=== PATIENT | female | born 1985 | race Caucasian/White ===

== ENCOUNTER 2020-07-04 15:00 | Inpatient (IN) | payer MEDICAID ==
[~2020-07-04] VITALS: Ht 157.5 cm; Wt 55.4 kg
[2020-07-04 15:00] VITALS: BP 102/68
--- NOTE | 2020-07-04 16:04 | NUR ---
PAGER ID: [phone] MESSAGE: [facility] [id number] Re: Jacques from [place] is here please have admitting MD call
[2020-07-04] MEDS ORDERED: normal saline 1000ml 1,000 ML IV SCH (16:10)
[2020-07-04] MEDS ORDERED: CADD PCA waste documentation MC PRN (16:10)
[2020-07-04] MEDS ORDERED: naloxone 0.4 mg/ml inj IV PRN (16:10)
[2020-07-04 16:40] LABS: BASOPHILS % (AUTO) 0.5 % (0-1); EOSINOPHILS # (AUTO) 0.2 X10'3 (0-0.9); EOSINOPHILS % (AUTO) 2.6 % (0-6); HEMATOCRIT 39.2 % (35.0-45.0); HEMOGLOBIN 13.3 g/dl (12.0-16.0); LYMPHOCYTES # (AUTO) 1.7 X10'3 (1.1-4.8); LYMPHOCYTES % (AUTO) 22.4 % (21-51); MEAN CORPUSCULAR HEMOGLOBIN 33.6 PG (27.0-31.0); MEAN CORPUSCULAR HGB CONC 33.9 g/dL (33.0-36.5); MEAN CORPUSCULAR VOLUME 99.2 FL (78-98); MEAN PLATELET VOLUME 8.8 FL (7.4-10.4); MONOCYTES # (AUTO) 0.5 X10'3 (0-0.9); MONOCYTES % (AUTO) 6.4 % (2-12); NEUTROPHILS # (AUTO) 5.3 X10'3 (1.8-7.7); NEUTROPHILS % (AUTO) 68.1 % (42-75); PLATELET COUNT 205 X10'3 (140-440); RED BLOOD COUNT 3.95 X10'6 (4.20-5.60); RED CELL DISTRIBUTION WIDTH 14.9 % (11.5-14.5); WHITE BLOOD COUNT 7.8 X10'3 (4.5-11.0)
[2020-07-04 16:41] LABS: URINE HCG NEGATIVE (NEG)
[2020-07-04 16:48] LABS: PARTIAL THROMBOPLASTIN TIME 27 SECONDS (22-32)
[2020-07-04 16:50] LABS: ALANINE AMINOTRANSFERASE 50 U/L (12-78); ALBUMIN 3.3 G/DL (3.4-5.0); ALKALINE PHOSPHATASE 97 IU/L (46-116); ANION GAP 7 (8-16); ASPARTATE AMINO TRANSFERASE 40 U/L (10-37); BILIRUBIN,TOTAL 0.3 MG/DL (0.1-1.0); BLOOD UREA NITROGEN 3 MG/DL (7-18); BUN/CREATININE RATIO 4.9 (6.6-38.0); CALCIUM 8.5 MG/DL (8.5-10.1); CHLORIDE 105 MMOL/L (99-107); CREATININE 0.61 MG/DL (0.40-0.90); GLUCOSE 94 MG/DL (70-104); POTASSIUM 4.2 MMOL/L (3.5-5.1); SODIUM 142 MMOL/L (135-145); TOTAL CARBON DIOXIDE 30.5 MMOL/L (24-32); TOTAL PROTEIN 6.6 G/DL (6.4-8.2); eGFR > 90 ML/MIN
[2020-07-04] MEDS: HYDROmorphone/NS 1 mg/ml CADD 50 ML IV SCH ×4 (17:11→23:00)
[2020-07-04] MEDS ORDERED: ESCI20TA25 PO (17:21)
[2020-07-04] MEDS ORDERED: HYDR-3686 PO (17:27)
--- NOTE | 2020-07-04 17:32 | NUR ---
PAGER ID: [phone] MESSAGE: [facility] [id number] Re: Direct admit, Jacques- Dr Osborne can you call please re: admit for Dr Harrison
--- NOTE | 2020-07-04 17:33 | NUR ---
Patient states that she take an anxiety medication but can't remember the name and only takes it sometimes. Per patient she uses [facility] [place]. I called and they did not show anything [facility] and it is in med rec. Dr Osborne aware and will come and see patient before she leaves [facility]
[2020-07-04] MEDS ORDERED: potassium Cl 20 mEq SR tablet PO PRN ×2 (18:05)
[2020-07-04] MEDS ORDERED: HYDROcodone/acetaminophen 10/325mg tab PO PRN (18:05)
[2020-07-04] MEDS ORDERED: magnesium 4gm in 100ml NS 100 ML IV PRN (18:05)
[2020-07-04] MEDS ORDERED: docusate sod 100mg capsule PO PRN (18:05)
[2020-07-04] MEDS ORDERED: ondansetron/PF 4mg/2ml inj IV PRN (18:05)
[2020-07-04] MEDS ORDERED: HYDROcodone/acetaminophen 5mg/325mg tablet PO PRN (18:05)
[2020-07-04] MEDS: normal saline 1000ml 1,000 ML IV SCH (18:05)
[2020-07-04] MEDS ORDERED: potassium Cl 40MEQ/1/2NS 520ml 520 ML IV PRN ×2 (18:05)
[2020-07-04] MEDS ORDERED: acetaminophen 325mg tablet PO PRN ×2 (18:05)
[2020-07-04] MEDS ORDERED: magnesium 2GM in 50ml NS 50 ML IV PRN (18:05)
[2020-07-04] MEDS ORDERED: magnesium Cl slow-release 64mg tablet PO PRN (18:05)
[2020-07-04] MEDS ORDERED: morphine 2 MG/ML inj. syringe IV PRN ×2 (18:05)
--- NOTE | 2020-07-04 18:05 | NUR ---
Received a call from Lab that patients Covid test is negative
--- NOTE | 2020-07-04 18:30 | NUR ---
I have received report from Bozena CARRERA and had the opportunity to ask questions and assume patient care.
--- NOTE | 2020-07-04 18:50 | NUR ---
Problems reprioritized. Patient report given, questions answered & plan of care reviewed with Amanda CARRERA.
[2020-07-04] MEDS ORDERED: hydrOXYzine 25 MG tablet PO ONE (18:55)
[2020-07-04 20:00] VITALS: BP 126/66
[2020-07-04] MEDS: heparin, porcine 5000 units/ml vial SQ SCH (20:00)
[2020-07-04] MEDS: K and/or MAG REPLACEMENT MC SCH (20:00)
[2020-07-04] MEDS ORDERED: temazepam 15mg capsule PO PRN (21:00)
--- NOTE | 2020-07-04 22:53 | NUR ---
I have received report from Bozena CARRERA and had the opportunity to ask questions and assume patient care.
[2020-07-05] VITALS (16 sets, daily range): BP systolic 95–123; BP diastolic 51–82
[2020-07-05] MEDS: piperacillin/tazo 3.375gm/50ml 50 ML IV SCH ×3 (00:15→17:10)
[2020-07-05] MEDS: HYDROmorphone/NS 1 mg/ml CADD 50 ML IV SCH ×10 (01:00→23:00)
[2020-07-05] MEDS: normal saline 1000ml 1,000 ML IV SCH ×2 (03:47→17:10)
--- NOTE | 2020-07-05 06:47 | NUR ---
Problems reprioritized. Patient report given, questions answered & plan of care reviewed with Elsie CARRERA.
[2020-07-05 07:12] LABS: BASOPHILS % (AUTO) 0.2 % (0-1); EOSINOPHILS # (AUTO) 0.2 X10'3 (0-0.9); EOSINOPHILS % (AUTO) 3.2 % (0-6); HEMOGLOBIN 11.9 g/dl (12.0-16.0); MEAN CORPUSCULAR HEMOGLOBIN 33.2 PG (27.0-31.0); MEAN CORPUSCULAR HGB CONC 33.1 g/dL (33.0-36.5); MEAN CORPUSCULAR VOLUME 100.4 FL (78-98); MEAN PLATELET VOLUME 8.9 FL (7.4-10.4); MONOCYTES # (AUTO) 0.5 X10'3 (0-0.9); MONOCYTES % (AUTO) 8.1 % (2-12); NEUTROPHILS % (AUTO) 52.5 % (42-75); PLATELET COUNT 188 X10'3 (140-440); RED BLOOD COUNT 3.58 X10'6 (4.20-5.60); RED CELL DISTRIBUTION WIDTH 14.9 % (11.5-14.5); WHITE BLOOD COUNT 5.7 X10'3 (4.5-11.0)
--- NOTE | 2020-07-05 07:23 | NUR ---
Patient in room [facility]. I have received report from kevon CARRERA and had the opportunity to ask questions and assume patient care.
[2020-07-05] MEDS: pantoprazole 40mg Tablet.DR PO SCH (07:30)
[2020-07-05 07:40] LABS: ALANINE AMINOTRANSFERASE 43 U/L (12-78); ALBUMIN 2.7 G/DL (3.4-5.0); ALBUMIN/GLOBULIN RATIO 0.9 (1.1-1.5); ALKALINE PHOSPHATASE 79 IU/L (46-116); ANION GAP 6 (8-16); ASPARTATE AMINO TRANSFERASE 37 U/L (10-37); BILIRUBIN,TOTAL 0.2 MG/DL (0.1-1.0); BLOOD UREA NITROGEN 2 MG/DL (7-18); BUN/CREATININE RATIO 3.2 (6.6-38.0); CALCIUM 8.2 MG/DL (8.5-10.1); CHLORIDE 109 MMOL/L (99-107); CHOL/HDL RATIO 3.1 (0.00-4.99); CHOLESTEROL 150 MG/DL (0-200); CREATININE 0.62 MG/DL (0.40-0.90); GLUCOSE 84 MG/DL (70-104); HDL CHOLESTEROL 48 MG/DL (35-60); LDL CHOLESTEROL 93 MG/DL (50-100); SODIUM 143 MMOL/L (135-145); TOTAL CARBON DIOXIDE 28.5 MMOL/L (24-32); TOTAL PROTEIN 5.7 G/DL (6.4-8.2); TRIGLYCERIDES 92 MG/DL (20-135); eGFR > 90 ML/MIN
[2020-07-05] MEDS: heparin, porcine 5000 units/ml vial SQ SCH ×2 (08:00→20:00)
[2020-07-05] MEDS: ESCITALOPRAM OXALATE 5 MG TABLET PO SCH (08:00)
[2020-07-05] MEDS ORDERED: nicotine 14mg patch - 24hr TD SCH ×2 (08:00→21:22)
[2020-07-05] MEDS: K and/or MAG REPLACEMENT MC SCH ×2 (08:00→20:00)
[2020-07-05] MEDS: hydrOXYzine 25 MG tablet PO SCH ×3 (08:00→17:31)
[2020-07-05] MEDS ORDERED: famotidine/PF 10 mg/ml inj IV ONE (08:20)
[2020-07-05] MEDS ORDERED: ringers solution, lacted 1,000 ML IV ONE (08:25)
[2020-07-05] MEDS ORDERED: INDOCYANINE GREEN 25 MG/10 ML VIAL IV ONE (10:00)
[2020-07-05] MEDS ORDERED: pneumococcal 23-VAL P-sac vacc 25 mcg/0.5ml vial IMVAC ONE (10:00)
[2020-07-05] MEDS ORDERED: FLU VACC QS2020-21(6MOS UP)/PF 60 MCG/0.5 ML SYRINGE IMVAC ONE (10:00)
[2020-07-05] MEDS ORDERED: labetalol 20mg/4ml (5mg/ml) syringe IV PRN (11:00)
[2020-07-05] MEDS ORDERED: morphine 4 MG/ML inj SYRINge IV PRN (11:00)
[2020-07-05] MEDS ORDERED: fentaNYL/PF 50MCG/1 ML 2ML syringe IV PRN ×2 (11:00)
[2020-07-05] MEDS ORDERED: morphine 2 MG/ML inj. syringe IV PRN (11:00)
[2020-07-05] MEDS ORDERED: hydrALAZINE 20mg/ml inj. IV PRN (11:00)
[2020-07-05] MEDS ORDERED: ondansetron/PF 4mg/2ml inj IV PRN (11:00)
[2020-07-05] MEDS ORDERED: ringers solution, lacted 1,000 ML IV SCH (11:00)
--- NOTE | 2020-07-05 13:25 | NUR ---
Received from OR via , accompanied by Anesthesiologist DR DE LA GARZA and report given by Anesthesiolgist. AWAKENS TO VOICE. VITALS STABLE. DRESSINGS DI. C/O MODERSTE ABD PAIN. ABD SOFT.
[2020-07-05] MEDS ORDERED: BUPIVAcaine/PF 2.5 mg/ml (0.25%) 30ml vial ONE (14:09)
[2020-07-05] MEDS ORDERED: LIDOcaine 1% 30ml preserv. free vial ONE (14:09)
[2020-07-05] MEDS ORDERED: glycopyrrolate 0.2mg/ml inj ONE (14:10)
[2020-07-05] MEDS ORDERED: neostigmine methylsulfate 1 MG/ML 10ml vial ONE (14:10)
[2020-07-05] MEDS ORDERED: sevoflurane 250ml liquid IH ONE (14:10)
--- NOTE | 2020-07-05 14:15 | NUR ---
Report called to receiving nurse. Transferred via BED Belongings . Special Issues communicated to receiving nurse.AWAKE AND ORIENTED. VITALS STABLE. DRESSINGS DI. STATES PAIN IMPROVING. TO SURGICAL RM 347B AT THIS TIME.
[2020-07-05] MEDS ORDERED: midazolam 2 mg/2 ml injection ONE (14:16)
[2020-07-05] MEDS ORDERED: fentaNYL/PF 50MCG/1 ML 2ML syringe ONE (14:16)
[2020-07-05] MEDS ORDERED: ceFAZolin 1000mg inj ONE (14:22)
[2020-07-05] MEDS ORDERED: ondansetron/PF 4mg/2ml inj ONE (14:24)
[2020-07-05] MEDS ORDERED: LIDOcaine 2% (20mg/ml) 5ml vial ONE (14:24)
[2020-07-05] MEDS ORDERED: propofol inj 20 ML IV ONE (14:24)
[2020-07-05] MEDS ORDERED: dexamethasone sod phosphate 4mg/ml inj. ONE (14:25)
[2020-07-05] MEDS ORDERED: rocuronium 10mg/ml inj IV ONE (14:28)
[2020-07-05] MEDS ORDERED: HYDROcodone/acetaminophen 10/325mg tab PO PRN (15:25)
[2020-07-05] MEDS ORDERED: HYDROcodone/acetaminophen 5mg/325mg tablet PO PRN (15:25)
--- NOTE | 2020-07-05 15:58 | NUR ---
Patient in room PACU 1. I have received report from EARNESTINE CARRERA and had the opportunity to ask questions and assume patient care.
[2020-07-05] MEDS ORDERED: ESCITALOPRAM OXALATE 5 MG TABLET PO ONE (18:10)
--- NOTE | 2020-07-05 18:49 | NUR ---
patient appeared calm when rerturned from Recovery room, but very quickly started hyperventilating and stated she was having a panic attack and that she has borderline personality disorder. Stated she was in terrible pain. Patient instructed on use of dilaudid cadd and bolused x1. patient encouraged and coached through the panic attack. Dr aleman made aware and patients dose of lexapro given .Lap sites CDI x4. patient up to BSC x2. Dilaudid cadd pump appeared to be cleared down in Recovery as amounts given did not correlate with amount observed. Janet Segura in Recovery contacted. Note now made that patient had 10mg more of Dilaudid cadd than what amount of milligrams gven shows. Charge Nurse kaylen aware.
--- NOTE | 2020-07-05 18:54 | NUR ---
Problems reprioritized. Patient report given, questions answered & plan of care reviewed with Liana CARRERA.
--- NOTE | 2020-07-05 18:59 | NUR ---
Patient in room [facility]. I have received report from Elsie CARRERA and had the opportunity to ask questions and assume patient care.
[2020-07-06] VITALS: BP 94/52
[2020-07-06] MEDS: HYDROmorphone/NS 1 mg/ml CADD 50 ML IV SCH ×6 (01:00→11:00)
[2020-07-06] MEDS: piperacillin/tazo 3.375gm/50ml 50 ML IV SCH ×2 (01:01→08:16)
[2020-07-06] MEDS: hydrOXYzine 25 MG tablet PO SCH ×2 (01:04→08:16)
[2020-07-06] MEDS: normal saline 1000ml 1,000 ML IV SCH ×2 (01:06→12:19)
[2020-07-06 04:45] VITALS: BP 91/58
--- NOTE | 2020-07-06 06:11 | NUR ---
Patient in room [facility]. I have received report from ELIDIA CARRERA and had the opportunity to ask questions and assume patient care.
--- NOTE | 2020-07-06 06:54 | NUR ---
Problems reprioritized. Patient report given, questions answered & plan of care reviewed with Elsie CARRERA.
[2020-07-06 07:00] VITALS: BP 118/68
[2020-07-06 07:30] LABS: BASOPHILS % (AUTO) 0.5 % (0-1); EOSINOPHILS % (AUTO) 0 % (0-6); HEMATOCRIT 35.8 % (35.0-45.0); HEMOGLOBIN 11.8 g/dl (12.0-16.0); LYMPHOCYTES % (AUTO) 12.4 % (21-51); MEAN CORPUSCULAR HEMOGLOBIN 33.1 PG (27.0-31.0); MEAN CORPUSCULAR VOLUME 100.4 FL (78-98); MEAN PLATELET VOLUME 9.2 FL (7.4-10.4); MONOCYTES # (AUTO) 0.6 X10'3 (0-0.9); MONOCYTES % (AUTO) 7.7 % (2-12); NEUTROPHILS # (AUTO) 6.4 X10'3 (1.8-7.7); NEUTROPHILS % (AUTO) 79.4 % (42-75); PLATELET COUNT 185 X10'3 (140-440); RED BLOOD COUNT 3.57 X10'6 (4.20-5.60); RED CELL DISTRIBUTION WIDTH 15.1 % (11.5-14.5)
[2020-07-06 07:49] LABS: ALANINE AMINOTRANSFERASE 44 U/L (12-78); ALBUMIN 2.9 G/DL (3.4-5.0); ALBUMIN/GLOBULIN RATIO 0.9 (1.1-1.5); ALKALINE PHOSPHATASE 76 IU/L (46-116); ANION GAP 5 (8-16); ASPARTATE AMINO TRANSFERASE 41 U/L (10-37); BILIRUBIN,TOTAL 0.3 MG/DL (0.1-1.0); BLOOD UREA NITROGEN 2 MG/DL (7-18); BUN/CREATININE RATIO 3.2 (6.6-38.0); CALCIUM 9.2 MG/DL (8.5-10.1); CHLORIDE 107 MMOL/L (99-107); CREATININE 0.63 MG/DL (0.40-0.90); GLUCOSE 106 MG/DL (70-104); POTASSIUM 4.2 MMOL/L (3.5-5.1); SODIUM 144 MMOL/L (135-145); TOTAL CARBON DIOXIDE 31.7 MMOL/L (24-32); TOTAL PROTEIN 6.1 G/DL (6.4-8.2); eGFR > 90 ML/MIN
[2020-07-06] MEDS: K and/or MAG REPLACEMENT MC SCH (08:00)
[2020-07-06] MEDS: heparin, porcine 5000 units/ml vial SQ SCH (08:00)
[2020-07-06] MEDS: mag hydrox/Alum hydrox/simeth 30ml oral suspension PO PRN ×2 (08:16→09:56)
[2020-07-06] MEDS: pantoprazole 40mg Tablet.DR PO SCH (08:16)
[2020-07-06] MEDS: ESCITALOPRAM OXALATE 5 MG TABLET PO SCH (08:16)
[2020-07-06] MEDS ORDERED: HYDROcodone/acetaminophen 5mg/325mg tablet PO PRN (12:55)
[2020-07-06] MEDS ORDERED: HYDR-3964 PO (12:58)
--- NOTE | 2020-07-06 14:42 | NUR ---
Patient labile at times with mood. using dilaudid cadd appropriately. up and about in room passed a small BM. Tolerated regular diet. seen by Dr Ruiz and DR Hadley. is for discharge. 4 lap sited CDI. All DC instructions given to patient and a script for [place] given to patient. Patient discharged home via private car to home with friend. [id number]
== END 2020-07-06 13:45 | disposition home or self-care (01) | DRG 263 ==
LOC: SUR 3N 15:29 → PACU 07-05 11:12 → SUR 3N 07-05 16:00
PROVIDERS: ADMIT Surgery; ATTEND Surgery
PROC: BF121ZZ Fluoroscopy of Gallbladder using Low Osmolar Contrast (ICD-10-PCS; 2020-07-05)
PROC: 8E0W4CZ Robotic Assisted Procedure of Trunk Region, Percutaneous Endoscopic Approach (ICD-10-PCS; 2020-07-05)
PROC: 0FT44ZZ Resection of Gallbladder, Percutaneous Endoscopic Approach (ICD-10-PCS; principal; 2020-07-05 14:10)
DX: K81.0 Acute cholecystitis (principal); Z20.822 Contact with and (suspected) exposure to COVID-19; F41.9 Anxiety disorder, unspecified; K59.00 Constipation, unspecified; K82.8 Other specified diseases of gallbladder; F17.210 Nicotine dependence, cigarettes, uncomplicated; F32.9 Major depressive disorder, single episode, unspecified
CPT/HCPCS: 36415; 71045; 80053; 80061; 81025; 82948; 83605; 85025; 85610; 85730; 87040; 87081; 87635; 90732; A4215; A4618; G0378; J0690; J1100; J1170; J2001; J2250; J2405; J2543; J2704; J2710; J3010; J3490; J7030; J7120; Q0177; Q2039